=== PATIENT | male | born 2000 | race Caucasian/White ===

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

== ENCOUNTER → 2021-01-01 | Outpatient (CLI) | payer MEDICAID | LOC: COL.RAD 12-23 13:15 | DX: S99.821A Other specified injuries of right foot, initial encounter (principal) | CPT/HCPCS: J3301; Q9967 ==